=== PATIENT | male | born 1975 | race Caucasian/White ===

== ENCOUNTER 2016-10-26 15:28 | Emergency (ER) | payer SELFPAY ==
[~2016-10-26 15:28] MED LIST: PERCOCET 5/3251 TAB PO; TOBRADEX EYE O3.5 GM OP
[2016-10-26] MEDS ORDERED: AMOXICILLIN875 M1 PO (16:26)
== END 2016-10-26 16:56 ==
LOC: EDMED 15:28
DX: K12.2 Cellulitis and abscess of mouth (principal); K08.89 Other specified disorders of teeth and supporting structures; F17.200 Nicotine dependence, unspecified, uncomplicated